=== PATIENT | female | born 1985 | race Hispanic/Latino ===

== ENCOUNTER 2021-01-17 19:21 | Emergency (ER) | payer BC, MEDICAID ==
[~2021-01-17] VITALS: Ht 154.9 cm; Wt 93.0 kg
[2021-01-17 19:24] VITALS: BP 149/86
[2021-01-17 19:55] VITALS: BP 138/75
[2021-01-17 21:30] LABS: BASOPHILS % (AUTO) 0.9 % (0.0-5.0); EOSINOPHILS % (AUTO) 0.9 % (0.0-8.0); LYMPHOCYTES % (AUTO) 22.2 % (21.0-51.0); MEAN CORPUSCULAR HEMOGLOBIN 30.7 pg (27.0-33.0); MEAN CORPUSCULAR HGB CONC 33.8 g/dL (32.0-36.0); MEAN CORPUSCULAR VOLUME 90.9 fL (79-99); MONOCYTES % (AUTO) 7.5 % (3.0-13.0); NEUTROPHILS % (AUTO) 68.1 % (40.0-77.0); PLATELET COUNT (AUTO) 324 K/uL (130-400); RED CELL DISTRIBUTION WIDTH 11.8 % (11.0-15.5); WHITE BLOOD COUNT (AUTO) 7.7 K/uL (4.8-10.8)
[2021-01-17 21:40] VITALS: BP 138/75
[2021-01-17 21:40] LABS: CREATININE 0.6 mg/dL (0.5-1.5); POTASSIUM 3.9 mmol/L (3.5-5.1)
[2021-01-17 21:54] LABS: BILIRUBIN,TOTAL 0.3 mg/dL (0.2-1.0); THYROID STIMULATING HORMONE 1.07 uIU/mL (0.36-3.74); TOTAL PROTEIN, SERUM 7.8 g/dL (6.0-8.3)
[2021-01-17] MEDS ORDERED: IOHEXOL-350 75 ML VIAL IV ONE (22:38)
[2021-01-18 00:18] VITALS: BP 138/75
== END 2021-01-18 00:52 | disposition home or self-care (01) ==
LOC: EDH 19:21
DX: R44.8 Other symptoms and signs involving general sensations and perceptions (principal); R20.0 Anesthesia of skin; R11.2 Nausea with vomiting, unspecified; G43.909 Migraine, unspecified, not intractable, without status migrainosus; E03.9 Hypothyroidism, unspecified
CPT/HCPCS: 36415; 70470; 80053; 84443; 84484; 84703; 85025; 93005; 99285; Q9967